=== PATIENT | female | born 1965 | race Caucasian/White ===

== ENCOUNTER 2018-01-29 09:05 | Outpatient (CLI) | payer OTHER ==
--- NOTE | 2018-01-29 11:07 | MMO ---
BILATERAL SCREENING MAMMOGRAM: DATE: 01/29/18 HISTORY: 53-year-old female for screening mammography. COMPARISON: None available. FINDINGS: Bilateral MLO and CC views of the breasts show scattered fibroglandular breast tissue. Benign-appeari ng calcifications are seen in both breasts. There is no evidence of suspicious mass, suspicious clust er of microcalcifications, or area of architectural distortion. Interpretation of this mammogram was performed with the assistance of computer-aided detection. IMPRESSION: BIRADS 2: Benign Finding(s) Annual screening mammography is recommended. POS: JULIAN
== END 2018-01-29 09:06 | disposition home or self-care (01) ==
LOC: SCSMAMMO 09:05
PROVIDERS: ATTEND Family Medicine
DX: Z12.31 Encounter for screening mammogram for malignant neoplasm of breast (principal)
CPT/HCPCS: 77067

== ENCOUNTER 2018-12-16 07:41 | Observation (INO) | payer OTHER ==
[2018-12-16] MEDS ORDERED: Albuterol Sulfate 2.5 mg/3 ml Neb ONE (07:52)
[2018-12-16] MEDS ORDERED: Albuterol Sulfate 2.5 mg/0.5 ml Neb ONE (07:52)
--- NOTE | 2018-12-16 08:52 | RAD ---
PORTABLE CHEST ONE VIEW: 12/16/2018 8:36 a.m. HISTORY: Dyspnea. FINDINGS: The heart is enlarged. The lungs are well expanded without lobar consolidation, pneumothoraces, angela k pulmonary edema, or pleural effusions. There is mild prominence of the pulmonary vascularity. POS: TPC
[2018-12-16] MEDS ORDERED: Magnesium 2 GM/50 ML BAG (IN WATER) ONE (08:58)
[2018-12-16] MEDS ORDERED: Dexamethasone 10 MG/ML VIAL ONE (08:58)
[2018-12-16 09:05] LABS: #Eosinphils 0.2 thou/uL (0.0-0.7); #Lymphocytes 2.2 thou/uL (1.20-3.40); #Monocytes 0.4 thou/uL (0.11-0.59); %Basophils 0.3 % (0.0-1.0); %Eosinophils 2.7 % (0.0-10.0); %Monocytes 5.3 % (0.0-10.0); %Neutrophils 63.8 % (42.0-75.0); Hemoglobin 13.4 g/dL (12.0-16.0); Mean Corpuscular HGB CONC 33.2 g/dL (32.0-36.0); Mean Corpuscular Hemoglobin 31.9 pg (27.0-31.0); Mean Corpuscular Volume 96.1 fL (78.0-98.0); Mean Platelet Volume 9.5 fL (7.4-10.4); Platelet Count 173 thou/uL (130-400); RBC Distribution Width 12.3 % (11.5-14.5); White Blood Cell (WBC) Count 7.8 thou/uL (4.8-10.8)
[2018-12-16] MEDS ORDERED: Ibuprofen 800 MG TAB ONE (09:12)
[2018-12-16 09:31] LABS: ALT (SGPT) 37 U/L (8-55); AST (SGOT) 43 U/L (5-34); Albumin 3.8 g/dL (3.5-5.0); Alkaline Phosphatase 81 U/L (40-150); Anion Gap 16 mmol/L (10-20); BUN (Urea Nitrogen) 10 mg/dL (9.8-20.1); Bilirubin, Total 0.8 mg/dL (0.2-1.2); CK (CPK) 60 U/L (29-168); Calc. Creatinine Clearance 0 mL/min (70-130); Calcium 9.5 mg/dL (7.8-10.44); Carbon Dioxide 21 mmol/L (22-29); Chloride 103 mmol/L (98-107); Estimated GFR-MDRD 82; Globulin 3.2 g/dL (2.4-3.5); Glucose 117 mg/dL (70-105); Lipase 16 U/L (8-78); Potassium 3.8 mmol/L (3.5-5.1); Sodium 136 mmol/L (136-145)
[2018-12-16] MEDS ORDERED: Nitroglycerin 2% Ointment 1 INCH/1 GM Packet ONE (10:02)
[2018-12-16] MEDS ORDERED: Furosemide 40 MG/4 ML VIAL ONE (10:02)
--- NOTE | 2018-12-16 10:18 | CT ---
CT PULMONARY ANGIOGRAM WITH IV CONTRAST AND 3D POSTPROCESSING: Date: 12/16/18 HISTORY: Shortness of breath. FINDINGS: There is good contrast opacification of the pulmonary arterial vasculature without filling defects to suggest pulmonary embolism. The thoracic aorta is opacified without aneurysm or dissection. No peric ardial effusion is seen. There are small bilateral pleural effusions. There are ground-glass infiltra kizzy in the lung sesay. There are degenerative changes in the spine. IMPRESSION: No CT evidence of pulmonary embolism. POS: TPC
[2018-12-16 12:33] LABS: Troponin I Less than 0.010 ng/mL (< 0.028)
[2018-12-16] MEDS ORDERED: ISOVUE-370 76%-LOCM 1 ML ONE (13:32)
--- NOTE | 2018-12-16 14:17 | HP ---
REASON FOR ADMISSION: City Call Admission. [facility] patient from [place]. HISTORY OF PRESENT ILLNESS: The patient referred to [facility] by [facility] for congestive heart failure. The patient states she has been short of breath, could not get a deep breath for about 24 hours. She states she had sternal pain going to her back, lasted greater than 12 hours. States she is short of breath lying flat. She has been lightheaded, dizzy with some nausea. PAST MEDICAL HISTORY: Pertinent for asthma, COPD, hypertension, diabetes mellitus type 2, mixed connective tissue disorder, hepatitis C, dyslipidemia. CURRENT MEDICATIONS: 1. Aspirin 81 mg a day. 2. ProAir HFA 2 puffs twice a day p.r.n. 3. Atenolol 50 mg p.o. b.i.d. 4. Hydrochlorothiazide 25 mg a day. 5. Ibuprofen 800 mg q.8 hours p.r.n. 6. Losartan 50 mg a day. 7. Metformin 500 mg twice a day. 8. Pravastatin 20 mg two tablets a day. ALLERGIES: NO KNOWN DRUG ALLERGIES. PAST SURGICAL HISTORY: Tonsillectomy, adenoidectomy, ear surgery in the past. She has had two C sections, two D and Cs. FAMILY HISTORY: Father of brain cancer. Mother has rheumatoid arthritis. She is the only child. No diabetes or heart disease in the family. SOCIAL HISTORY: . Her and family are back in [place]. She does not smoke or drink alcohol. She has in the distant past smoked marijuana. Full code status. , next of kin. REVIEW OF SYSTEMS: GENERAL: She feels like she has night sweats and chills frequently. No documented fever. EYES: No double vision, blurred vision, or flashing lights. EARS, NOSE, AND THROAT: She has sinus drainage. No ear pain or drainage. No nasal bleeding. No trouble swallowing. CARDIAC: See present illness. RESPIRATIONS: She has dry cough. Has occasional wheezing. History of asthma. GASTROINTESTINAL: Nausea without vomiting. No abdominal pain, diarrhea, or etc. GENITOURINARY: No hematuria or dysuria. MUSCULOSKELETAL: She states all of her joints hurt constantly throughout her body. No swelling in her legs. No muscle pain. NEUROLOGICAL: She has had episodic numbness of her right face and neck, lasting 20 seconds or so over the past year. PSYCHIATRIC: No history of anxiety or depression. SKIN: She has rashes especially on her ankles secondary to her mixed connective tissue disorder. HEME/LYMPH: No tender or swollen lymph nodes in axilla, inguinal, or cervical area. PHYSICAL EXAMINATION: GENERAL: She is alert, pleasant, cooperative lady. VITAL SIGNS: Blood pressure 166/88, pulse 67, respirations 18, temperature 98.3 to 98.9, and O2 saturation 99 on room air. She rates the pain level as a steady 7 to 8. HEAD, EYES, EARS, NOSE, AND THROAT: Pupils are equal, round, and reactive to light. Extraocular movements are intact. Sclerae are white. Tympanic membranes clear. Nose is clear. Oral mucous membranes are wet. Dental hygiene is good. NECK: Supple without jugular venous distention, adenopathy, or thyromegaly. CHEST: Clear to percussion and auscultation. There are no wheezes, no rales, no rhonchi. HEART: Had a regular rate and rhythm. First and second heart sounds are clear. There are no appreciated murmurs or gallops. ABDOMEN: Soft. Bowel sounds are normal. There is no hepatosplenomegaly. No mass. No rebound or bruits. EXTREMITIES: There is no cyanosis, clubbing, or edema. PULSES: Carotid, radial, femoral, and dorsalis pedis pulses intact. SKIN: Has some mild nonspecific rash on her ankles. No bruising. No petechial hemorrhages. LYMPHATIC SURVEY: No tender or swollen lymph nodes in axillary, inguinal, or cervical area. NEUROLOGICAL: Cranial nerves 2 through 12 are intact. Moves all extremities. Toes are downgoing. DIAGNOSTIC DATA: EKG, regular sinus rhythm, no acute abnormality. Chest x-ray, supine film; borderline cardiomegaly, some possible infiltrate in the bilateral lower lobes. No obvious pulmonary edema or focal infiltrate reviewed by me. LABORATORY DATA: Comprehensive metabolic profile abnormalities. CO2 21, glucose 117, AST 47. BNP is minimally elevated to 546. Cardiac enzymes normal x2. D-dimer is 0.8. CBC is unremarkable. CT scan of the chest shows some ground-glass appearance of the lungs. ADMITTING DIAGNOSES: 1. Chest pain. 2. Dyspnea, history of asthma, mixed connective tissue disorder, hypertension, diabetes mellitus type 2, increased cholesterol. ASSESSMENT: I see no definitive etiology for any shortness of breath this time. The patient is moderately obese. Her chest is clear. Her heart exam is normal. Her CT scan does show some ground-glass appearance, which is I suspect chronic lung disease. We will put her on observation basis. Give aspirin. Finish trending troponins. Schedule a cardiac stress test and an echocardiogram. Home medicines will be continued for now except possibly the metformin due to the possibility of a cardiac cath in the future. Job ID: [id number]
[2018-12-16] MEDS ORDERED: Dextrose 50% Abboject 50 ML SYRINGE SLOW IVP PRN (14:20)
[2018-12-16] MEDS ORDERED: Dextrose 5% in Water 1,000 ML IV PRN (14:20)
[2018-12-16 14:41] VITALS: BMI 54.3
[2018-12-16] MEDS ORDERED: PROVENTIL INHALER 6.7 G (200 INHALATIONS) INH PRN (15:02)
[2018-12-16] MEDS: Ibuprofen 800 MG TAB PO PRN (15:30)
[2018-12-16 15:55] LABS: Troponin I Less than 0.010 ng/mL (< 0.028)
[2018-12-16] MEDS: HumaLOG 300 UNITS/3 ML VIAL SC PRN ×2 (16:56→20:41)
[2018-12-16] MEDS: traMADol HCl 50 MG TAB PO PRN ×2 (17:36→22:38)
[2018-12-16] MEDS: Mometasone Furoate 30 PUFF 220 MCG INH SCH (18:28)
[2018-12-16] MEDS: Mometasone/Formoterol 120 PUFF INHALER INH SCH (18:31)
[2018-12-16] MEDS: Atenolol 50 MG TAB PO SCH (20:33)
[2018-12-16] MEDS: Betamethasone Val 0.1% OINT 15 GM TUBE TOP SCH (20:34)
[2018-12-16] MEDS ORDERED: Atorvastatin Calcium 10 MG TAB PO SCH (21:00)
[2018-12-17] MEDS: Mometasone Furoate 30 PUFF 220 MCG INH SCH ×2 (06:40→06:44)
[2018-12-17] MEDS: Mometasone/Formoterol 120 PUFF INHALER INH SCH (06:42)
[2018-12-17] MEDS: traMADol HCl 50 MG TAB PO PRN ×2 (07:08→13:55)
[2018-12-17] MEDS: Ibuprofen 800 MG TAB PO PRN (08:00)
[2018-12-17] MEDS: Betamethasone Val 0.1% OINT 15 GM TUBE TOP SCH (08:02)
[2018-12-17] MEDS: Atenolol 50 MG TAB PO SCH (08:02)
--- NOTE | 2018-12-17 08:25 | PDOC.HOSPP ---
- Subjective Subjective: anxious about stress test, OW just vague diffuse pains - Objective Vital Signs & Weight: Vital Signs (12 hours) Temp Pulse Resp BP BP BP Pulse Ox 12/17/18 08:02 56 L 150/73 H 12/17/18 06:44 66 16 98 12/17/18 06:42 66 16 98 12/17/18 04:29 98.4 F 56 L 16 126/59 L 94 L 12/16/18 23:12 98.7 F 64 20 167/70 H 97 12/16/18 20:33 75 147/67 H Weight Weight 288 lb I&O: 12/16/18 12/17/18 12/18/18 06:59 06:59 06:59 Intake Total 740 Output Total 1050 Balance -310 Result Diagrams: 12/16/18 08:52 12/16/18 08:52 Additional Labs: Accuchecks 12/17/18 12/16/18 12/16/18 04:37 20:29 16:28 POC Glucose 148 H 285 H 254 H ROS - Review of Systems All systems: All other ROS were reviewed and found negative. - Medication Medications: Active Medications Generic Name Dose Route Start Last Admin Trade Name Sanjayq PRN Reason Stop Dose Admin Aspirin 325 mg 12/17/18 09:00 12/17/18 08:01 Ecotrin PO 325 mg DAILY [facility] Administration Atenolol 50 mg 12/16/18 21:00 12/17/18 08:02 Tenormin PO Not Given BID [facility] Atorvastatin Calcium 10 mg 12/16/18 21:00 12/16/18 20:34 Lipitor PO 10 mg HS [facility] Administration Betamethasone Valerate 0 gm 12/16/18 21:00 12/17/18 08:02 Valisone 0.1% Ointment TOP 1 applic BID [facility] Administration Cholecalciferol 1,000 units 12/17/18 09:00 12/17/18 08:01 Vitamin D3 PO 1,000 units DAILY [facility] Administration Enoxaparin Sodium 40 mg 12/17/18 09:00 12/17/18 08:01 Lovenox SC 40 mg 0900 [facility] Administration Hydrochlorothiazide 25 mg 12/17/18 09:00 12/17/18 08:01 Hydrochlorothiazide PO 25 mg DAILY [facility] Administration Ibuprofen 800 mg 12/16/18 15:02 12/17/18 08:00 Motrin PO 800 mg TID PRN Administration Pain Insulin Human Lispro 0 units 12/16/18 14:20 12/16/18 20:41 Humalog SC 4 units .MILD SLIDING SCALE PRN Administration Mild Correctional Scale Losartan Potassium 50 mg 12/17/18 09:00 12/17/18 08:00 Cozaar PO 50 mg DAILY [facility] Administration Mometasone Furoate 1 puff 12/16/18 18:30 12/17/18 06:44 Asmanex INH 1 puff BID-RT [facility] Administration Mometasone Furoate/Formoterol Fumar 2 puff 12/16/18 18:30 12/17/18 06:42 Dulera 200 Mcg/5 Mcg Inhaler INH 2 puff BID-RT [facility] Administration Sodium Chloride 10 ml 12/16/18 21:00 12/17/18 08:03 Flush - Normal Saline IVF 10 ml Q12HR [facility] Administration Tramadol HCl 50 mg 12/16/18 17:24 12/17/18 07:08 Ultram PO 50 mg Q4H PRN Administration Pain - Exam Neck: JVD Heart: RRR, no murmur Respiratory: CTAB, no wheezes, no rales Gastrointestinal: soft, non-tender, normal bowel sounds Extremities: no cyanosis, no clubbing, no edema Hosp A/P (1) Chest pain Code(s): R07.9 - CHEST PAIN, UNSPECIFIED Status: Acute Qualifiers: Chest pain type: other chest pain Qualified Code(s): R07.89 - Other chest pain; R07.8 - Other chest pain (2) Asthma Code(s): J45.909 - UNSPECIFIED ASTHMA, UNCOMPLICATED Status: Chronic Qualifiers: Asthma severity: unspecified severity Asthma complication type: uncomplicated (3) DM type 2 (diabetes mellitus, type 2) Status: Chronic Qualifiers: Diabetes mellitus fci insulin use: with fci use Diabetes mellitus complication status: without complication Qualified Code(s): E11.9 - Type 2 diabetes mellitus without complications; 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
[2018-12-17] MEDS ORDERED: Hydrochlorothiazide 25 MG TAB PO SCH (09:00)
[2018-12-17] MEDS ORDERED: Enoxaparin Sodium 40 MG/0.4 ML SYRINGE SC SCH (09:00)
[2018-12-17] MEDS ORDERED: Aspirin 325 mg Enteric Coated Tablet PO SCH (09:00)
[2018-12-17] MEDS ORDERED: Losartan 25 MG TAB PO SCH (09:00)
--- NOTE | 2018-12-17 12:08 | NM ---
Stress only myocardial perfusion scan: 12/17/2018 HISTORY: Congestive heart failure, hypertension and diabetes, chest pain TECHNIQUE: SPECT imaging of the left ventricular myocardium is obtained during stress following the i ntravenous administration of 30.4 mCi technetium 99m labeled sestamibi FINDINGS: No perfusion defect seen on SPECT imaging of the left ventricular myocardium. Left ventricu lar wall motion appears normal. Left ventricular ejection fraction is estimated at 84% with an EDV of 77 mL and ESV of 12 mL. IMPRESSION: Unremarkable stress only myocardial perfusion exam.
[2018-12-17] MEDS: HumaLOG 300 UNITS/3 ML VIAL SC PRN (12:31)
[2018-12-17] MEDS ORDERED: Regadenoson 0.4 MG/5 ML SYRINGE ONE (15:28)
[2018-12-17 16:11] VITALS: BP 138/75; TEMP 98.3
--- NOTE | 2018-12-18 08:01 | DIS ---
DATE OF ADMISSION: 12/16/2018 DATE OF DISCHARGE: 12/17/2018 City Call Admission for David. A resident of the [facility] referred to [facility] after presented to the emergency room complaining of shortness of breath and tightness in her chest. She was found on laboratories to have an elevated BNP. She was referred to the hospitalist service for new onset of congestive heart failure based on that. Her comp metabolic profile had some minor abnormalities, AST 43, blood sugar 117, carbon dioxide 21. Cardiac enzymes were normal x3. CBC was normal. The patient underwent a nuclear medicine cardiac stress test which is normal. FINAL DIAGNOSES: 1. Chest pain, noncardiac. 2. Diabetes mellitus type 2. 3. Chronic lung disease without exacerbation. 4. Hypertension. 5. Mixed connective tissue disorder. 6. Hepatitis C. 7. Dyslipidemia. 8. History of asthma. DISCHARGE MEDICATIONS: 1. Aspirin 81 mg a day. 2. ProAir HFA 2 puffs twice a day p.r.n. 3. Atenolol 50 mg twice a day. 4. Hydrochlorothiazide 25 mg a day. 5. Ibuprofen 800 mg p.o. q.8 hours p.r.n. 6. Losartan 50 mg a day. 7. Metformin 500 mg twice a day. 8. Pravastatin 20 mg at bedtime. 9. Aspirin 81 mg a day. 10. Asmanex 220 mcg inhaled twice a day. ALLERGIES: NO KNOWN DRUG ALLERGIES. DIET: Diabetic. PENDING AT TIME OF DISCHARGE: She has had an echocardiogram done to assess ejection fraction. However, the ejection fraction on her nuclear medicine cardiac stress test was rated at 80%. She had a CT of the chest done to rule out pulmonary emboli, which reveals no pulmonary emboli and there are some scattered ground-glass infiltrates. PHYSICAL EXAMINATION: CARDIAC: Regular rate and rhythm. First and second heart sounds clear. No murmurs or gallops. CHEST: Clear to auscultation and percussion. VITAL SIGNS: Blood pressure 138/75, room air sat 96 to 100, respirations 16, pulse 64, temperature 98.3. Chest x-ray revealed to be under-penetrated, some prominence of pulmonary vascularity. The patient is being discharged back to the [facility] followup there. I suspect most of her symptomatology is related to her mixed connective tissue disorder, her obesity, etc. No organic basis for her complaints was found on this study. Job ID: [id number]
== END 2018-12-17 17:45 ==
LOC: EEVIPCON 07:41 → ERS 07:41 → 2SW 11:18
PROVIDERS: ADMIT Internal Medicine; ATTEND Internal Medicine
DX: R07.89 Other chest pain (principal); E11.9 Type 2 diabetes mellitus without complications; J44.9 Chronic obstructive pulmonary disease, unspecified; I10 Essential (primary) hypertension; M35.1 Other overlap syndromes; B19.20 Unspecified viral hepatitis C without hepatic coma; E78.5 Hyperlipidemia, unspecified; F41.9 Anxiety disorder, unspecified; F32.9 Major depressive disorder, single episode, unspecified; E66.9 Obesity, unspecified; Z79.84 Long term (current) use of oral hypoglycemic drugs; Z79.82 Long term (current) use of aspirin; Z79.899 Other long term (current) drug therapy; Z68.43 Body mass index [BMI] 50.0-59.9, adult
CPT/HCPCS: 36415; 36416; 71045; 71275; 78452; 80053; 82550; 83690; 83880; 84484; 85025; 85379; 93005; 93017; 93306; 94640; 94760; 96365; 96372; 96375; A9500; G0378; J1100; J1650; J1940; J2785; J3475; J7611; J7620; Q9966